=== PATIENT | female | born 1990 | race Two or more races ===

== ENCOUNTER 2022-08-10 09:32 | Emergency (ER) | payer MEDICAID, SELFPAY ==
[2022-08-10 09:34] VITALS: BP 114/65; PULSE 66; RESP 14; TEMP 36.1; O2SAT 97; BMI 20.7
--- NOTE | 2022-08-10 09:53 | EKG12_ITS ---
Test Reason : CP Blood Pressure : / mmHG Vent. Rate : 070 BPM Atrial Rate : 070 BPM P-R Int : 136 ms QRS Dur : 084 ms QT Int : 390 ms P-R-T Axes : 057 054 041 degrees QTc Int : 421 ms Normal sinus rhythm Nonspecific T wave abnormality Abnormal ECG Confirmed by GILBERT GUILLORY, EDWAR ([id number]), general expeditor STEFANY PETERS ([id number]) on 08/13/2022 11:40:13 AM Referred By: REI Confirmed By:PARVEEN HUNT MD
--- NOTE | 2022-08-10 09:55 | NURSING ---
NO OLD EKGS
--- NOTE | 2022-08-10 10:14 | EDS_ITS ---
HPI History of Present Illness Chief Complaint: Dizziness Detail of Chief Complaint: Dizziness Informant: patient Narrative Narrative: Patient presents with dizziness that started 2 weeks ago. Patient states that the dizziness clinic came on first and then she had associated nausea with that patient had some vomiting and then also states that 1 day she had some diarrhea. Patient has continued dizziness especially when she lays flat and feels like the room spinning. Patient states that about 3 to 4 days before the dizziness started she did hit her head on a water slide but she did not think much of it. She denied any loss of consciousness. She denies headaches. Patient denies other illnesses. She had no fevers. Patient otherwise has no medical history. Patient also states for the last 3 days she has had some discomfort in the right side of her chest feels somewhat like tightness. She denies recent travel or surgery. No history of PE or DVT. PFSH PFSH Home Medications meclizine 25 mg chewable tablet (Antivert) 25 mg PO TID PRN dizziness #20 tabs 08/10/22 [Rx Last Taken Unknown] Allergy/AdvReac Type Severity Reaction Status Date / Time No Known Allergies Allergy Verified 08/10/22 09:34 ROS ROS ED ROS Narrative Dizziness Review of Systems ROS Unobtainable: other Constitutional Constitutional ED: Reports lethargy; Denies chills, fever(s), sweats or weight loss Eyes Eyes: Denies blurry vision, change in vision or diplopia ENT ENT ED: Denies rhinorrhea or sore throat Cardiovascular Cardiovascular: Reports chest pain; Denies orthopnea or racing heartbeat Respiratory/Chest Respiratory/Chest: Denies cough, dyspnea, dyspnea on exertion, orthopnea or sputum Gastrointestinal Gastrointestinal: Denies abdominal pain, diarrhea, nausea or vomiting Genitourinary Genitourinary ED: Denies dysuria, hematuria or urinary frequency Musculoskeletal Musculoskeletal: Denies arthralgias, back pain, myalgias or neck pain Integumentary Denies abscess, Abrasions or rash Neurologic Neurologic: Denies headache(s) or weakness Psychiatric Psychiatric: Denies anxiety, depression or suicidal thoughts Endocrine Endocrinology: Denies polydipsia, polyphagia or polyuria Hematologic/Lymphatic Hematologic/Lymphatic: Denies easy bleeding, easy bruising or lymphadenopathy Allergic/Immunologic Allergic/Immunologic ED: Denies mouth swelling, tongue swelling or urticaria EXAM Physical Exam Const Vital Signs: 08/10/22 09:34 Temperature 97 F L Temperature Source Temporal Pulse Rate 66 Respiratory Rate 14 Blood Pressure 114/65 Blood Pressure Mean 81 Pulse Ox 97 Oxygen Delivery Method Room Air Positive well nourished and well developed General Appearance ED: well developed and NAD HEENT Reports TM's clear and moist mucous membranes normocephalic and atraumatic; Negative for trauma or tenderness Tympanic Membrane ED: Yes TM's clear Eyes PERRL and EOMs intact bilaterally General Eye ED: Negative for pale conjunctiva or scleral icterus Neck no lymphadenopathy, supple and no JVD General: Negative for tenderness Chest Wall inspection of chest normal and palpation of chest normal Chest: Negative for tenderness Resp normal respiratory effort and clear to auscultation bilaterally Effort and Inspection: Negative for respiratory distress or pain with movement Auscultation: Negative for rhonchi, wheezes or diminished lung sounds Cardio regular rate, regular rhythm, S1 normal heart sound, S2 normal heart sound and no murmurs Peripheral Pulses: pulses 2+ throughout GI normal to inspection, nondistended, normoactive bowel sounds, soft to palpation, non-tender, non-distended and no masses Back/Spine no CVA tenderness and no thoracic nor lumbar tenderness Extremity normal to inspection General Extremety ED: Negative for edema General Extremity: Negative for edema Neuro oriented x3, CN's II-XII intact bilaterally, no sensory deficits noted and gait normal Neuro Narrative: Finger-nose and heel stuart testing within normal limits, negative Romberg, negative for drift, fundi benign. Patient had Hallpike maneuver performed then with head turn to the right as she laid flat she had nystagmus that fatigued and about 30 seconds. Sensorium / Orientation: awake, alert, oriented to person, oriented to place and oriented to time Motor Exam: strength 5/5 throughout and strength abnormal Psych mental status grossly normal Skin no rashes or lesions noted and no wounds MDM MDM MDM Narrative Medical decision making narrative: Patient presents with dizziness x2 weeks. Exam consistent with benign positional vertigo. We did perform the Lynnette maneuver. Nursing staff obtain an EKG via protocol prior to my evaluating the patient and this showed a sinus rhythm with a ventricular rate of 70 bpm with no acute ST segment changes. Patient is PERC negative. I do not feel her chest pain related to PE or acute coronary syndrome. I suspect her symptoms related to benign positional vertigo. I will write her prescription for Antivert as needed and I instructed her on how to perform the Lynnette maneuver. She is currently nursing her child and would like to avoid medication. I will give her referral to primary care physician for follow-up. EKG Initial EKG: Comments: Sinus rhythm with a ventricular rate of 70 bpm with no acute ST segment changes Discharge Plan Triage Chief Complaint: Dizziness ED Provider: Ajith Farah Dx/Rx/DC Orders Clinical Impression: Benign positional vertigo, Chest pain Instructions: ED BPV Vertigo, ED Chest Pain, Uncertain Cause Prescriptions: New meclizine [Antivert] 25 mg tablet,chewable 25 mg PO TID PRN (Reason: dizziness) Qty: 20 0RF Referrals: Lien Laughlin MD [Med Staff - Screw Driver Operator] - 3-5 Days Disposition Disposition: Home, Self Care
[2022-08-10 10:30] VITALS: BP 124/77; PULSE 62; RESP 17; O2SAT 98
== END 2022-08-10 10:33 | disposition home or self-care (01) ==
LOC: ED 10:23
PROVIDERS: Emergency Provider Emergency Medicine; Visit Provider Emergency Medicine
DX: H81.10 Benign paroxysmal vertigo, unspecified ear (principal)
CPT/HCPCS: 93005; 99282; A4216

== ENCOUNTER → 2022-10-09 | Outpatient (CLI) | payer MEDICAID, SELFPAY ==
[2022-10-09 15:24] LABS: Absolute Lymphocyte Count 1.71 X10^3/uL (0.83-4.51); Basophil# 0.01 X10^3/uL; Basophil% 0.2 % (0-1); Eosinophil# 0.06 X10^3/uL; Eosinophils% 1.1 % (0-5); Hematocrit 36.9 % (37-47); Hemoglobin 11.6 g/dL (12.0-15.0); Lymphocyte # 1.71 X10^3/ul (0.83-4.51); Lymphocyte % 32.6 % (19-41); Mean Corp Hgb Conc 31.4 g/dL (32-36); Mean Corpuscular Hgb 29.9 pg (27.0-32.0); Mean Corpuscular Volume 95.1 fL (81-99); Mean Platelet Vol. 10.2 fl (6.2-12.0); Monocyte# 0.44 X10^3/uL; Monocyte% 8.4 % (0-10); NRBC Flagged by Analyzer 0 % (0-5); Neutrophil # 3.01 X10^3/uL (2.7-7.7); Neutrophil % 57.3 % (47-70); Platelet Count 295 K/mm3 (150-450); RBC Distribution Width CV 12.5 % (11.6-14.6); RBC Distribution Width SD 43.7 fl (35.1-43.9); Red Blood Count 3.88 M/mm3 (4.2-5.4); White Blood Count 5.3 K/mm3 (4.4-11.0)
[2022-10-09 15:51] LABS: ALB/GLOB Ratio 1.1 RATIO (0.9-2.4); AST(SGOT) 20 U/L (15-37); Alanine Aminotransfer ALT/SGPT 20 U/L (13-56); Albumin, Serum 3.8 g/dL (3.2-5.0); Alkaline Phosphatase 54 U/L (45-117); Anion Gap 3 (5-15); BUN 17 mg/dL (7-18); BUN/Creat Ratio 25.3 RATIO (10-20); Calcium,Total 8.3 mg/dL (8.5-10.1); Chloride 108 mmol/L (98-107); Cholesterol 151 mg/dL (200); Creatinine, Serum 0.67 mg/dL (0.55-1.02); EST Glomerular Filtration Rate 107 mL/min (>60); Est Glom Filt Rate - Afr Amer 129 mL/min (>60); Ferritin 12 ng/mL (8-252); Globulin 3.6 g/dL (2.2-4.2); Glucose 79 mg/dL (74-106); High Density Lipoprotein 75 mg/dL; Magnesium 2.4 mg/dL (1.6-2.6); Potassium 4.1 mmol/L (3.5-5.1); Protein, Total 7.4 g/dL (6.4-8.2); Sodium Level 137 mmol/L (136-145); Thyroid Stim Hormone (TSH) 3.95 uIU/mL (0.358-3.74); Triglycerides 23 mg/dL; Very Low Density Lipoprotein 5 mg/dL (5-40)
[2022-10-09 16:23] LABS: Vitamin B12 491 pg/mL (211-911); Vitamin D,25 Hydroxy 29.4 ng/mL
[2022-10-09 16:26] LABS: Hemoglobin A1c 5.1 % (3.8-5.6)
== END | disposition home or self-care (01) ==
LOC: MFPLAB 11:43
PROVIDERS: PCP Family Medicine; Visit Provider Family Medicine
DX: Z00.00 Encounter for general adult medical examination without abnormal findings (principal); Z13.0 Encounter for screening for diseases of the blood and blood-forming organs and certain disorders involving the immune mechanism; Z13.1 Encounter for screening for diabetes mellitus; Z13.220 Encounter for screening for lipoid disorders; Z13.29 Encounter for screening for other suspected endocrine disorder; R53.83 Other fatigue
CPT/HCPCS: 36415; 80053; 80061; 82306; 82607; 82728; 83036; 83735; 84443; 85025

== ENCOUNTER → 2022-10-22 | Outpatient (CLI) | payer MEDICAID, SELFPAY ==
[2022-10-22 18:27] LABS: T4 Free Direct 0.78 ng/dL (0.76-1.46); Thyroid Stim Hormone (TSH) 3.81 uIU/mL (0.358-3.74)
[2022-11-01 22:07] LABS: Anti-Thyroglobulin AB 3.7 IU/mL (0.0-0.9); Thyroglobulin RIA 8.4 ng/mL (.); Thyroid Peroxidase AB 39 IU/mL (0-34); Thyroid Stim Immunoglob <0.10 IU/L (0.00-0.55)
== END | disposition home or self-care (01) ==
LOC: MFPLAB 14:14
PROVIDERS: PCP Family Medicine; Visit Provider Family Medicine
DX: R94.6 Abnormal results of thyroid function studies (principal)
CPT/HCPCS: 36415; 84432; 84439; 84443; 84445; 84481; 86376; 86800

== ENCOUNTER 2023-02-14 10:45 | Emergency (ER) | payer MEDICAID, SELFPAY ==
[2023-02-14 10:47] VITALS: BP 89/48; PULSE 89; RESP 16; TEMP 36.8; O2SAT 97; BMI 21.9
[2023-02-14] MEDS: Ketorolac 15 MG/ML Vial IV (11:21)
[2023-02-14] MEDS: Ondansetron 4 MG/2 ML Vial IV (11:21)
--- NOTE | 2023-02-14 11:24 | ED.RN ---
Client refused medication at point of administration. Willing only to take saline.
--- NOTE | 2023-02-14 11:38 | ED.RN ---
Patient refusing to have covid / flu swab obtained, tearful. Patient also refusing medications due to safety concerns. Education provided about medications ordered and their purpose. Patient remains tearful and continually states I've had this before . Educated about treatment plan and why ordered. Patient agrees to labwork, urine testing and fluids only.
[2023-02-14 11:40] LABS: Mucous, Urine 0 SEEN /hpf (<or=2+); Squamous Epithelial Cells - UA 0 SEEN /hpf (5-10)
[2023-02-14 11:41] LABS: Color, Urine Yellow (Yellow); Glucose, Dipstick Normal (Normal); Ketone-Dipstick Negative (Negative); Leukocyte Esterase-Dipstick 25 /ul (Negative); Nitrite-Dipstick Negative (Negative); Occult Blood-Urine 25 /ul (Negative); Protein-Dipstick Negative (Negative); Urine Bilirubin Dipstick Negative (Negative); Urine Clarity Clear (Clear); Urine Urobilinogen Normal (Normal)
[2023-02-14 11:42] LABS: Absolute Lymphocyte Count 0.35 X10^3/uL (0.83-4.51); Absolute Neutrophil Count 4.1 X10^3/uL (2.0-7.7); Basophil# 0.01 X10^3/uL; Basophil% 0.2 % (0-1); Hematocrit 32.3 % (37-47); Hemoglobin 11.5 g/dL (12.0-15.0); Lymphocyte # 0.35 X10^3/ul (0.83-4.51); Lymphocyte % 6.8 % (19-41); Mean Corp Hgb Conc 35.6 g/dL (32-36); Mean Corpuscular Hgb 31.3 pg (27.0-32.0); Mean Corpuscular Volume 87.8 fL (81-99); Mean Platelet Vol. 9.5 fl (6.2-12.0); Monocyte# 0.72 X10^3/uL; NRBC Flagged by Analyzer 0 % (0-5); Neutrophil # 4.07 X10^3/uL (2.7-7.7); Neutrophil % 78.8 % (47-70); POSITIVE DIFFERENTIAL YES; Platelet Count 176 K/mm3 (150-450); RBC Distribution Width SD 41.8 fl (35.1-43.9); Red Blood Count 3.68 M/mm3 (4.2-5.4); White Blood Count 5.2 K/mm3 (4.4-11.0)
[2023-02-14 11:43] LABS: Differential Indicated SCAN CRITERIA MET
[2023-02-14] MEDS: 0.9% Normal Saline (1000mL) 1,000 ML 1000 ML IV ×2 (11:45→12:47)
[2023-02-14 11:47] LABS: Bacteria RARE /hpf (None Seen); Red Blood Cells-Urine 0-5 SEEN /hpf (0-5); White Blood Cells 0-5 SEEN /hpf (0-5)
[2023-02-14 11:52] LABS: Platelet Estimate ADEQUATE (ADEQ); Red Cell Morphology NORM C+C NORMAL (NORM C&C)
[2023-02-14 12:03] LABS: Internal QC Validated? YES +Cl - CLEAR BKGD; Pregnancy, Serum, hCG Quali. NEGATIVE Negative
[2023-02-14 12:11] LABS: Anion Gap 12 (5-15); BUN 15 mg/dL (7-18); BUN/Creat Ratio 13.4 RATIO (10-20); Calcium,Total 7.6 mg/dL (8.5-10.1); Chloride 102 mmol/L (98-107); Creatinine, Serum 1.12 mg/dL (0.55-1.02); EST Glomerular Filtration Rate 59 mL/min (>60); Est Glom Filt Rate - Afr Amer 71 mL/min (>60); Estimated Creatinine Clearance 58.55 ml/min; Glucose 115 mg/dL (74-106); Potassium 3.4 mmol/L (3.5-5.1); Sodium Level 137 mmol/L (136-145)
--- NOTE | 2023-02-14 12:21 | EDS_ITS ---
HPI History of Present Illness Chief Complaint: General Illness Narrative Narrative: 32-year-old female with no significant past medical history presenting with bodyaches, chills, muscle contractions. Patient states she had the symptoms about a year ago when she had the flu. Patient states onset was yesterday. She had some diarrhea but not vomiting. She has been eating and drinking. PFSH PFSH Home Medications NK 02/14/23 [History Last Taken Unknown] ondansetron 4 mg disintegrating tablet 4 mg PO Q8H PRN PRN Nausea #20 tabs 02/14/23 [Rx Last Taken Unknown] Allergy/AdvReac Type Severity Reaction Status Date / Time morphine Allergy Mild Hives Verified 02/14/23 10:57 Social History Smoking Status: Never smoker EXAM Physical Exam Const Vital Signs: 02/14/23 10:47 02/14/23 11:12 02/14/23 12:51 Temperature 98.2 F Temperature Source Oral Pulse Rate 89 68 Respiratory Rate 16 Respiratory Effort Normal Non-Labored Blood Pressure 89/48 L 114/68 Blood Pressure Mean 61 83 Pulse Ox 97 Oxygen Delivery Method Room Air General Appearance ED: Negative for pallor HEENT Reports normocephalic, head/scalp atraumatic and moist mucous membranes Eyes PERRL and EOMs intact bilaterally Resp normal respiratory effort and clear to auscultation bilaterally Auscultation: Negative for rales, rhonchi or wheezes Cardio regular rate and regular rhythm GI normal to inspection, nondistended, normoactive bowel sounds Auscultation: normoactive bowel sounds Palpation: soft Narrative: Deferred Back/Spine no CVA tenderness Extremity normal to inspection Neuro oriented x3 and CN's II-XII intact bilaterally Sensorium / Orientation: alert Motor Exam: strength 5/5 throughout Psych mental status grossly normal Attitude: No agitated Skin no rashes or lesions noted and no wounds General Skin Exam: Negative for jaundice or pallor MDM MDM MDM Narrative Medical decision making narrative: Patient presenting with chills, muscle cramps. She states last time she had that she had the flu. Patient given IV fluids, Zofran, Toradol. Lab work was obtained which shows normal CBC and the patient's creatinine is slightly elevated. I did order her 2 L of normal saline. Urinalysis negative. hCG negative. Offered COVID, flu, RSV testing however patient states that she is fine without it. On reevaluation at 2 PM the patient is doing well. She states her symptoms have improved. Will give her a prescription for Zofran for home return precautions given. Impression: 1. Dehydration 2. Viral syndrome 3. Muscle cramps Lab Data Labs: Laboratory Results - last 24 hr 02/14/23 02/14/23 11:28 11:35 WBC 5.2 RBC 3.68 L Hgb 11.5 L Hct 32.3 L MCV 87.8 MCH 31.3 MCHC 35.6 RDW Std Deviation 41.8 RDW Coeff of Noé 13.0 Plt Count 176 MPV 9.5 Immature Gran % (Auto) 0.200 Neut % (Auto) 78.8 H Lymph % (Auto) 6.8 L Milam % (Auto) 14.0 H Eos % (Auto) 0.0 Baso % (Auto) 0.2 Absolute Neuts (auto) 4.1 Absolute Lymphs (auto) 0.35 L Nucleated RBC % 0 Platelet Estimate ADEQUATE RBC Morphology NORM C+C Sodium 137 Potassium 3.4 L Chloride 102 Carbon Dioxide 23.0 Anion Gap 12 BUN 15 Creatinine 1.12 H Estim Creat Clear Calc 58.55 Est GFR (MDRD) Af Amer 71 Est GFR (MDRD) Non-Af 59 L BUN/Creatinine Ratio 13.4 Glucose 115 H Calcium 7.6 L Serum , Qual NEGATIVE Urine Color Yellow Urine Clarity Clear Urine pH 6.0 Ur Specific Sycamore 1.010 Urine Protein Negative Urine Glucose (UA) Normal Urine Ketones Negative Urine Occult Blood 25 H Urine Nitrite Negative Urine Bilirubin Negative Urine Urobilinogen Normal Ur Leukocyte Esterase 25 H Urine RBC 0-5 SEEN Urine WBC 0-5 SEEN Ur Squamous Epith Cells 0 SEEN Urine Bacteria RARE Urine Mucus 0 SEEN Discharge Plan Triage Chief Complaint: General Illness ED Provider: Sharath Lowery Dx/Rx/DC Orders Instructions: ED Viral Syndrome (Adult) Prescriptions: New ondansetron 4 mg tablet,disintegrating 4 mg PO Q8H PRN PRN (Reason: Nausea) Qty: 20 0RF No Action NK Primary Care Provider: Blanquita Borrero Referrals: Blanquita Borrero, DO [Primary Care Provider] - Disposition Disposition: Home, Self Care
[2023-02-14 12:51] VITALS: BP 114/68; PULSE 68
[2023-02-14 14:00] VITALS: BP 104/67; PULSE 63
== END 2023-02-14 14:41 | disposition home or self-care (01) ==
PROVIDERS: Emergency Provider Student in an Organized Health Care Education/Training Program; PCP Family Medicine; Visit Provider Student in an Organized Health Care Education/Training Program
DX: E86.0 Dehydration (principal); B34.9 Viral infection, unspecified; R25.2 Cramp and spasm
CPT/HCPCS: 80048; 81001; 84703; 85025; 96361; 96374; 96375; 99282; J7030; A4216; J2405

== ENCOUNTER → 2023-11-10 | Outpatient (CLI) | payer MEDICAID, SELFPAY ==
[2023-11-10 18:35] LABS: ALB/GLOB Ratio 1.1 RATIO (0.9-2.4); AST(SGOT) 15 U/L (15-37); Alanine Aminotransfer ALT/SGPT 13 U/L (13-56); Albumin, Serum 3.9 g/dL (3.2-5.0); Alkaline Phosphatase 46 U/L (45-117); Anion Gap 8 (5-15); BUN 13 mg/dL (7-18); BUN/Creat Ratio 16.1 RATIO (10-20); Calcium,Total 8.5 mg/dL (8.5-10.1); Chloride 104 mmol/L (98-107); Creatinine, Serum 0.81 mg/dL (0.55-1.02); EST Glomerular Filtration Rate 86 mL/min (>60); Est Glom Filt Rate - Afr Amer 104 mL/min (>60); Globulin 3.7 g/dL (2.2-4.2); Glucose 115 mg/dL (74-106); Potassium 3.7 mmol/L (3.5-5.1); Protein, Total 7.6 g/dL (6.4-8.2); Sodium Level 137 mmol/L (136-145)
== END | disposition home or self-care (01) ==
LOC: MFPLAB 15:03
PROVIDERS: PCP Family Medicine; Visit Provider Family Medicine
DX: R53.83 Other fatigue (principal)
CPT/HCPCS: 36415; 80053; 84443

== ENCOUNTER → 2023-11-11 | Outpatient (CLI) | payer MEDICAID, SELFPAY ==
[2023-11-11 15:30] LABS: Absolute Lymphocyte Count 0.77 X10^3/uL (0.83-4.51); Absolute Neutrophil Count 1.8 X10^3/uL (2.0-7.7); Basophil# 0.01 X10^3/uL; Basophil% 0.3 % (0-1); Eosinophil# 0.02 X10^3/uL; Eosinophils% 0.6 % (0-5); Hematocrit 33.9 % (37-47); Hemoglobin 11.3 g/dL (12.0-15.0); Lymphocyte # 0.77 X10^3/ul (0.83-4.51); Mean Corp Hgb Conc 33.3 g/dL (32-36); Mean Corpuscular Hgb 29.8 pg (27.0-32.0); Mean Corpuscular Volume 89.4 fL (81-99); Mean Platelet Vol. 9.8 fl (6.2-12.0); Monocyte# 0.49 X10^3/uL; Monocyte% 15.9 % (0-10); NRBC Flagged by Analyzer 0 % (0-5); Neutrophil # 1.77 X10^3/uL (2.7-7.7); Neutrophil % 57.6 % (47-70); Platelet Count 313 K/mm3 (150-450); RBC Distribution Width CV 12.4 % (11.6-14.6); RBC Distribution Width SD 40.5 fl (35.1-43.9); Red Blood Count 3.79 M/mm3 (4.2-5.4); White Blood Count 3.1 K/mm3 (4.4-11.0)
== END | disposition home or self-care (01) ==
PROVIDERS: PCP Family Medicine; Referring Provider Family Medicine; Visit Provider Family Medicine
DX: R53.83 Other fatigue (principal)
CPT/HCPCS: 36415; 85025

== ENCOUNTER → 2023-11-12 | Outpatient (CLI) | payer MEDICAID, SELFPAY ==
--- NOTE | 2023-11-12 08:55 | US_ITS ---
STUDY: ABDOMINAL ULTRASOUND - RIGHT UPPER QUADRANT REASON FOR VISIT: Female, 33 years old RUQ PAIN TECHNIQUE: Ultrasound evaluation of the right upper quadrant was performed with real-time and static [place]-scale imaging. TECHNICAL QUALITY: Adequate. COMPARISON: None. FINDINGS: Liver: The liver measures 16.5 cm. There is normal echogenicity of the liver. The bile ducts are within normal limits. There is hepatic color flow. The direction of portal flow is hepatopetal. There is no demonstrated mass lesion. Gallbladder: Normal distended gallbladder. The gallbladder wall measures 2.5 mm. There is a negative sonographic Cain''s sign. There is no pericholecystic fluid. There are no gallstones. Common Bile Duct (C.B.D.): The common bile duct measures 2.9 mm. Pancreas: Normal size of the head, body and tail of the pancreas. There is normal echogenicity of the pancreas. There is no demonstrated pancreatic mass or cyst. Right Kidney: Normal size of the right kidney. The right kidney measures 10.8 cm x 4.5 cm x 4.4 cm. Normal renal cortex. The right cortex measures 1.3 cm. There is no demonstrated renal mass or cyst. There is no right hydronephrosis. US/Abdomen Limited IMPRESSION: Normal right upper quadrant ultrasound examination. Electronically Signed: Seth Avelar MD at 13:51 EDT ,
== END | disposition home or self-care (01) ==
PROVIDERS: PCP Family Medicine; Referring Provider Family Medicine; Visit Provider Family Medicine
DX: R10.11 Right upper quadrant pain (principal)
CPT/HCPCS: 76705

== ENCOUNTER 2023-11-18 21:32 | Emergency (ER) | payer MEDICAID, SELFPAY ==
[2023-11-18 21:33] VITALS: BP 125/70; PULSE 72; RESP 18; TEMP 36.4; O2SAT 100; BMI 21.1
--- NOTE | 2023-11-18 21:59 | EKG12_ITS ---
Test Reason : CO Blood Pressure : / mmHG Vent. Rate : 062 BPM Atrial Rate : 062 BPM P-R Int : 146 ms QRS Dur : 080 ms QT Int : 388 ms P-R-T Axes : 063 066 044 degrees QTc Int : 393 ms Normal sinus rhythm with sinus arrhythmia Normal ECG Confirmed by SVETLANA GUILLORY, NEERAJ ([id number]), senior technical editor PABLO MAYES ([id number]) on 11/20/2023 2:09:36 PM Referred By: CELINE Confirmed By:NEERAJ MOTA MD
--- NOTE | 2023-11-18 22:04 | EDS_ITS ---
HPI History of Present Illness Chief Complaint: Chest Pain Detail of Chief Complaint: Abnormal phototypesetting equipment monitor result Informant: patient Narrative Narrative: Patient presents the emergency department complaining of an abnormal cardiac heart monitor result. Patient states that somebody from her doctor's office called her to say that she needed to come to the emergency department to be seen because of some abnormal stops on her phototypesetting equipment monitor. Patient states that she was informed of this around 5 PM and I am seeing the patient approximately 2147. Patient denies any chest pain. She states has been under more stress. She tells me she was sick 2 weeks ago with a cold symptoms and she had symptoms of vomiting and diarrhea and at 1 point had a syncopal episode. Patient also had some abdominal discomfort a week ago in the right upper quadrant thought maybe her gallbladder was acting up. She went to the office and asked them to put a phototypesetting equipment monitor on her. She has had no further syncopal episodes. She denies any significant palpitations or racing heart. PFSH PFSH Medical History no medical history Home Medications ?Medication ?Instructions ?Recorded ?Last Taken ?Type NK 02/14/23 Unknown History Allergy/AdvReac Type Severity Reaction Status Date / Time morphine Allergy Mild Hives Verified 11/18/23 21:35 Family History no significant family his Surgical History no surgical history Social History Smoking Status: Never smoker ROS ROS ED Review of Systems ROS Unobtainable: other Constitutional Constitutional ED: Reports lethargy; Denies chills, fever(s), sweats or weight loss Eyes Eyes: Denies blurry vision, change in vision or diplopia ENT ENT ED: Denies rhinorrhea or sore throat Cardiovascular Cardiovascular: Reports chest pain and palpitations; Denies orthopnea or racing heartbeat Respiratory/Chest Respiratory/Chest: Denies cough, dyspnea, dyspnea on exertion, orthopnea or sputum Gastrointestinal Gastrointestinal: Denies abdominal pain, diarrhea, nausea or vomiting Genitourinary Genitourinary ED: Denies dysuria, hematuria or urinary frequency Musculoskeletal Musculoskeletal: Denies arthralgias, back pain, myalgias or neck pain Integumentary Denies abscess, Abrasions or rash Neurologic Neurologic: Denies headache(s) or weakness Psychiatric Psychiatric: Denies anxiety, depression or suicidal thoughts Endocrine Endocrinology: Denies polydipsia, polyphagia or polyuria Hematologic/Lymphatic Hematologic/Lymphatic: Denies easy bleeding, easy bruising or lymphadenopathy Allergic/Immunologic Allergic/Immunologic ED: Denies mouth swelling, tongue swelling or urticaria EXAM Physical Exam Const Vital Signs: 11/18/23 21:33 11/18/23 21:41 Temperature 97.6 F L Temperature Source Temporal Pulse Rate 72 Respiratory Rate 18 Respiratory Effort Normal Blood Pressure 125/70 H Blood Pressure Mean 88 Pulse Ox 100 Oxygen Delivery Method Room Air Positive well nourished and well developed General Appearance ED: well developed and NAD HEENT Reports TM's clear and moist mucous membranes normocephalic and atraumatic; Negative for trauma or tenderness Tympanic Membrane ED: Yes TM's clear Eyes PERRL and EOMs intact bilaterally General Eye ED: Negative for pale conjunctiva or scleral icterus Neck no lymphadenopathy, supple and no JVD General: Negative for tenderness Chest Wall inspection of chest normal and palpation of chest normal Chest: Negative for tenderness Resp normal respiratory effort and clear to auscultation bilaterally Effort and Inspection: Negative for respiratory distress or pain with movement Auscultation: Negative for rhonchi, wheezes or diminished lung sounds Cardio regular rate, regular rhythm, S1 normal heart sound, S2 normal heart sound and no murmurs Peripheral Pulses: pulses 2+ throughout GI normal to inspection, nondistended, normoactive bowel sounds, soft to palpation, non-tender, non-distended and no masses Back/Spine no CVA tenderness and no thoracic nor lumbar tenderness Extremity normal to inspection General Extremety ED: Negative for edema General Extremity: Negative for edema Neuro oriented x3, CN's II-XII intact bilaterally, no sensory deficits noted and gait normal Sensorium / Orientation: awake, alert, oriented to person, oriented to place and oriented to time Motor Exam: strength 5/5 throughout and strength abnormal Psych mental status grossly normal Skin no rashes or lesions noted and no wounds MDM MDM MDM Narrative Medical decision making narrative: Patient presents with complaint of abnormal finding on heart monitor but really has a hard time expressing what that means and states that she was told that she had some abnormal pauses or stops. Clinically she looks well. I discussed case with Dr. Denise who is covering for Dr. Candelario and attempt to obtain results of heart monitor that patient wore. I am told that that result would not be in their system yet and would be a hard copy in the office. Dr. Davis will make Dr. Candelario aware of concern and they will address it in the morning as long as her workup in the ED was unremarkable. On arrival she had an EKG that showed a rhythm with ventricular rate of 62 bpm with occasional PACs otherwise no acute findings. CBC with differential was normal. Chemistries unremarkable. Troponin normal. D-dimer normal. At this point discussed results with patient. She has no concerning signs or symptoms of lethal arrhythmia. Based on her description of events from her syncopal episode few weeks ago suspect this may have been related to an illness where she may have had a vasovagal episode or blood pressure issue related to vomiting and diarrhea. I feel it safe to send patient home to follow-up with her primary care physician. Lab Data Attestation: I reviewed the patient's lab results. Discharge Plan Triage Chief Complaint: Chest Pain ED Provider: Ajith Farah Dx/Rx/DC Orders Clinical Impression: Palpitations Instructions: ED Palpitations Prescriptions: No Action NK Primary Care Provider: Nitin Candelario Referrals: Nitin Candelario MD [Primary Care Provider] - 1 Day Print Language: Ethiopian Disposition Disposition: Home, Self Care
[2023-11-18 22:27] LABS: Absolute Lymphocyte Count 1.92 X10^3/uL (0.83-4.51); Absolute Neutrophil Count 3.9 X10^3/uL (2.0-7.7); Basophil# 0.04 X10^3/uL; Basophil% 0.6 % (0-1); Eosinophil# 0.06 X10^3/uL; Eosinophils% 0.9 % (0-5); Hematocrit 32.1 % (37-47); Hemoglobin 10.9 g/dL (12.0-15.0); Lymphocyte # 1.92 X10^3/ul (0.83-4.51); Lymphocyte % 29.7 % (19-41); Mean Corpuscular Hgb 30.3 pg (27.0-32.0); Mean Corpuscular Volume 89.2 fL (81-99); Mean Platelet Vol. 9.6 fl (6.2-12.0); Monocyte# 0.58 X10^3/uL; NRBC Flagged by Analyzer 0 % (0-5); Neutrophil # 3.85 X10^3/uL (2.7-7.7); Neutrophil % 59.6 % (47-70); Platelet Count 331 K/mm3 (150-450); RBC Distribution Width CV 12.5 % (11.6-14.6); RBC Distribution Width SD 40.7 fl (35.1-43.9); White Blood Count 6.5 K/mm3 (4.4-11.0)
[2023-11-18 22:36] LABS: Anion Gap 6 (5-15); BUN 18 mg/dL (7-18); BUN/Creat Ratio 29.5 RATIO (10-20); Calcium,Total 8.6 mg/dL (8.5-10.1); Chloride 109 mmol/L (98-107); Creatinine, Serum 0.61 mg/dL (0.55-1.02); EST Glomerular Filtration Rate 119 mL/min (>60); Est Glom Filt Rate - Afr Amer 143 mL/min (>60); Estimated Creatinine Clearance 106.48 ml/min; Glucose 94 mg/dL (74-106); Potassium 3.5 mmol/L (3.5-5.1); Sodium Level 142 mmol/L (136-145); Troponin-I HS (w/2H Reflex) < 3 pg/mL (3.0-54.0)
[2023-11-18 22:37] LABS: D-Dimer Quantitative (DVT/PE) 0.29 FEU/ug/m (0.27-0.49)
[2023-11-18 23:23] VITALS: BP 107/85; PULSE 70; RESP 16; TEMP 36.8; O2SAT 98
[2023-11-19 00:15] LABS: Reflex Troponin-HS? (from REC) Y
== END 2023-11-18 23:24 | disposition home or self-care (01) ==
PROVIDERS: Emergency Provider Emergency Medicine; PCP Family Medicine; Visit Provider Emergency Medicine
DX: R00.2 Palpitations (principal)
CPT/HCPCS: 80048; 84484; 85025; 85379; 93005; 99284; A4216

== ENCOUNTER 2023-11-23 15:36 | Emergency (ER) | payer MEDICAID, SELFPAY ==
[2023-11-23 15:37] VITALS: BP 129/110; PULSE 89; RESP 16; TEMP 36.3; O2SAT 99; BMI 20.7
[2023-11-23 15:45] VITALS: BP 117/89
--- NOTE | 2023-11-23 16:04 | EX.ED.DYSGE1 ---
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 She was seen by myself approximately 5 days ago for the same complaint but she could not tell me what was abnormal with her monitor and we were unable to obtain a copy of the result. She had cardiac workup at that time that was unremarkable and patient was stable for discharge and was sent home to follow-up with primary care physician. She does not have an appointment for 2 weeks. Patient states that she just does not feel well. Today she felt she was get a pass out and came back for evaluation. PFSH PFS Home Medications ?Medication ?Instructions ?Recorded ?Last Taken ?Type NK 02/14/23 Unknown History Allergy/AdvReac Type Severity Reaction Status Date / Time morphine Allergy Mild Hives Verified 11/23/23 15:37 Social History (Updated 11/20/23 @ 14:11 by Wisam Glover RN) household members: spouse and children Smoking Status: Never smoker alcohol intake: never substance use type: does not use ROS ROS ED Review of Systems ROS Unobtainable: other Constitutional Constitutional ED: Reports lethargy; Denies chills, fever(s), sweats or weight loss Eyes Eyes: Denies blurry vision, change in vision or diplopia ENT ENT ED: Denies rhinorrhea or sore throat Cardiovascular Cardiovascular: Reports racing heartbeat; Denies chest pain or orthopnea Respiratory/Chest Respiratory/Chest: Denies cough, dyspnea, dyspnea on exertion, orthopnea or sputum Gastrointestinal Gastrointestinal: Reports diarrhea; Denies abdominal pain, nausea or vomiting Genitourinary Genitourinary ED: Denies dysuria, hematuria or urinary frequency Musculoskeletal Musculoskeletal: Denies arthralgias, back pain, myalgias or neck pain Integumentary Denies abscess, Abrasions or rash Neurologic Neurologic: Denies headache(s) or weakness Psychiatric Psychiatric: Denies anxiety, depression or suicidal thoughts Endocrine Endocrinology: Denies polydipsia, polyphagia or polyuria Hematologic/Lymphatic Hematologic/Lymphatic: Denies easy bleeding, easy bruising or lymphadenopathy Allergic/Immunologic Allergic/Immunologic ED: Denies mouth swelling, tongue swelling or urticaria EXAM Physical Exam Const Vital Signs: 11/23/23 15:37 11/23/23 15:45 Temperature 97.3 F L Temperature Source Oral Pulse Rate 89 Respiratory Rate 16 Blood Pressure 129/110 H 117/89 H Blood Pressure Mean 116 98 Pulse Ox 99 Oxygen Delivery Method Room Air Positive well nourished and well developed General Appearance ED: well developed and NAD HEENT Reports TM's clear and moist mucous membranes normocephalic and atraumatic; Negative for trauma or tenderness Tympanic Membrane ED: Yes TM's clear Eyes PERRL and EOMs intact bilaterally General Eye ED: Negative for pale conjunctiva or scleral icterus Neck no lymphadenopathy, supple and no JVD General: Negative for tenderness Chest Wall inspection of chest normal and palpation of chest normal Chest: Negative for tenderness Resp normal respiratory effort and clear to auscultation bilaterally Effort and Inspection: Negative for respiratory distress or pain with movement Auscultation: Negative for rhonchi, wheezes or diminished lung sounds Cardio regular rate, regular rhythm, S1 normal heart sound, S2 normal heart sound and no murmurs Peripheral Pulses: pulses 2+ throughout GI normal to inspection, nondistended, normoactive bowel sounds, soft to palpation, non-tender, non-distended and no masses Back/Spine no CVA tenderness and no thoracic nor lumbar tenderness Extremity normal to inspection General Extremety ED: Negative for edema General Extremity: Negative for edema Neuro oriented x3, CN's II-XII intact bilaterally, no sensory deficits noted and gait normal Sensorium / Orientation: awake, alert, oriented to person, oriented to place and oriented to time Motor Exam: strength 5/5 throughout and strength abnormal Psych mental status grossly normal Skin no rashes or lesions noted and no wounds MDM MDM MDM Narrative Medical decision making narrative: Patient presents with abnormal wholesale agronomist reading. She was wearing the heart monitor when she had a syncopal episode. It is noted on the impression that patient met MDN criteria for asystole greater than 5 seconds and severe bradycardia less than 30 bpm. It is unclear if this episode occurred at time of her syncopal episode which based on her description I felt was likely vasovagal. I discussed case with Dr. Arreola cardiology who will evaluate patient. Will obtain an EKG. EKG showed a sinus rhythm with ventricular rate of [address] changes. I had Dr. Arreola evaluate patient in the emergency department. Is felt she does not need a pacemaker or any acute intervention. He has that she follow-up with their office to have a outpatient echocardiogram done. She was advised by . He is not to drive and to follow-up with her office. EKG Initial EKG: Attestation: I personally reviewed and interpreted this EKG as follows: Comments: Sinus rhythm with rate of 86 bpm with no acute ST segment changes noted. Discharge Plan Triage Chief Complaint: Chest Pain ED Provider: Ajith Farah Dx/Rx/DC Orders Clinical Impression: Palpitations, Bradycardia, Syncope, vasovagal Instructions: ED Bradycardia, ED Palpitations, ED Fainting, Vagal Reaction Prescriptions: No Action NK Primary Care Provider: Nitin Candelario Referrals: Nitin Candelario MD [Primary Care Provider] - Duane Arreola MD [Med Staff - Active Staff] - 3-5 Days Print Language: Spanish Disposition Disposition: Home, Self Care
--- NOTE | 2023-11-23 16:08 | EKG12_ITS ---
Test Reason : CP Blood Pressure : / mmHG Vent. Rate : 086 BPM Atrial Rate : 086 BPM P-R Int : 136 ms QRS Dur : 074 ms QT Int : 352 ms P-R-T Axes : 068 068 056 degrees QTc Int : 421 ms Normal sinus rhythm Nonspecific T wave abnormality Abnormal ECG Confirmed by Duane Arreola ([id number]), news videotape editor PABLO MAYES ([id number]) on 11/24/2023 8:29:28 AM Referred By: SAV Confirmed By:Duane Arreola
[2023-11-23 16:30] VITALS: BP 97/64; PULSE 75; RESP 17; O2SAT 99
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
== END 2023-11-23 16:56 | disposition home or self-care (01) ==
PROVIDERS: Emergency Provider Emergency Medicine; PCP Family Medicine; Visit Provider Emergency Medicine
DX: R00.2 Palpitations (principal); R00.1 Bradycardia, unspecified; R55 Syncope and collapse; Z63.0 Problems in relationship with spouse or partner; Z63.5 Disruption of family by separation and divorce
CPT/HCPCS: 93005; 99282; A4216

== ENCOUNTER → 2024-03-02 | Outpatient (CLI) | payer MEDICAID, SELFPAY ==
--- NOTE | 2024-03-02 13:00 | ECHOD_ITS ---
Reason For Study: SYNCOPE Procedure This was a 2D Doppler, Color Flow transthoracic echocardiogram. Exam performed in department. Left Ventricle Normal LV size. Left ventricular systolic function is normal. Normal diastology for age. The left ventricular ejection fraction is 70 %. No regional wall motion abnormalities noted. Right Ventricle Normal RV size. Normal systolic function. Atria Normal left atrium. Normal right atrium. Mitral Valve Normal mitral valve. Tricuspid Valve Normal tricuspid valve. Trivial tricuspid valve insufficiency. Aortic Valve Trisinus/trileaflet aortic valve. Pulmonic Valve Normal pulmonic valve. Great Vessels Normal aortic root. The pulmonary artery is normal size. Inferior vena cava collapse with respiration. Pericardium/Pleural No pericardial effusion. MMode/2D Measurements & Calculations LVIDd: 4.5 cm IVSd: 0.82 cm LVOT diam: 1.9 cm LVIDs: 3.0 cm LVPWd: 0.70 cm LVOT area: 2.8 cm2 RVDd: 3.3 cm FS: 33.4 % asc Aorta Diam: 2.5 cm LAV(MOD-bp): 28.5 ml LVAd ap4: 23.7 cm2 LAV(MOD-bp) Indexed: 18.4 ml/m2 LVLd ap4: 7.6 cm LAV(MOD-sp2): 30.7 ml EDV(MOD-sp4): 61.2 ml LAV(MOD-sp4): 25.5 ml EDV(sp4-el): 62.2 ml LVAs ap4: 10.1 cm2 LVLs ap4: 5.5 cm ESV(MOD-sp4): 16.1 ml ESV(sp4-el): 15.7 ml EF(MOD-sp4): 73.7 % EF(sp4-el): 74.8 % LVAd ap2: 24.4 cm2 SV(MOD-sp4): 45.1 ml SV(MOD-sp2): 46.7 ml LVLd ap2: 7.8 cm SI(MOD-sp4): 29.1 ml/m2 SI(MOD-sp2): 30.1 ml/m2 EDV(MOD-sp2): 64.7 ml EDV(sp2-el): 65.1 ml LVAs ap2: 11.3 cm2 LVLs ap2: 6.1 cm ESV(MOD-sp2): 18.0 ml ESV(sp2-el): 17.6 ml EF(MOD-sp2): 72.2 % SV(sp4-el): 46.5 ml Ao sinus diam: 2.[address] Junction: 1.8 cm LA dimension(2D): 3.2 cm LA A4 area: 12.2 cm2 RA A4 area: 11.5 cm2 TAPSE: 1.9 cm Time Measurements MV dec time: 0.23 sec Doppler Measurements & Calculations MV E max odell: 84.1 cm/sec Lat Peak E' Odell: 20.0 cm/sec Med Peak E' Odell: 14.4 cm/sec MV A max odell: 62.0 cm/sec E/E' lat: 4.2 E/E' med: 5.9 MV E/A: 1.4 MV dec slope: 371.7 cm/sec2 Ao V2 max: 142.6 cm/sec LV V1 max: 137.4 cm/sec Ao max P.1 mmHg LV V1 max P.6 mmHg Ao V2 mean: 94.6 cm/sec LV V1 mean P.9 mmHg Ao mean P.2 mmHg LV V1 mean: 90.4 cm/sec Ao V2 VTI: 30.0 cm LV V1 VTI: 28.6 cm AV (velocity ratio): 0.96 NAIDA(I,D): 2.6 cm2 NAIDA(V,D): 2.7 cm2 SV(LVOT): 79.0 ml PA V2 max: 108.4 cm/sec TR max odell: 222.5 cm/sec TR max P.8 mmHg ECHO/Echo Complete Interpretation Summary Normal LV size. Left ventricular systolic function is normal. The left ventricular ejection fraction is 70 %. Structurally normal valves. Ordering Physician: Duane Arreola Referring Physician: Duane Arreola MD Performed By: Zoe Liu RDCS
== END | disposition home or self-care (01) ==
LOC: CVS 12:58
PROVIDERS: PCP Family Medicine; Referring Provider Internal Medicine Cardiovascular Disease; Visit Provider Internal Medicine Cardiovascular Disease
DX: R55 Syncope and collapse (principal); R00.1 Bradycardia, unspecified; R00.2 Palpitations; R07.9 Chest pain, unspecified
CPT/HCPCS: 93306